=== PATIENT | male | born 2000 | race Caucasian/White ===

== ENCOUNTER 2022-07-09 11:35 | Emergency (ER) | payer BC ==
[~2022-07-09] VITALS: Ht 177.8 cm; Wt 81.6 kg
--- NOTE | 2022-07-09 12:08 | ED GI ---
General Chief Complaint: Abdominal/GI Problems Stated Complaint: VOMITTING BLOOD History of Present Illness Date Seen by Provider: Jul 09, 2022 Time Seen by Provider: 11:50 Initial Comments 21 year old male presents for vomiting daily to every 2-3 days, for the last 3-4 weeks. He was diagnosed with COVID [address] [facility]. He denies nausea or abdominal pain, no previous GI issues or surgeries. Is not taking any medications for the symptoms. Reports normal BM this morning. Hasn't eaten an ything this morning. Woke up at 1000, was brushing his teeth and "triggered something" then gagged and vomited. Noted some red blood in the emesis, reports it was not bright red or dark red. Has not noticed blood in the emesis prior to this episode. No other complaints, has not seen his PCP for the vomiting. Reports sometimes it happens after he eats, other times are random. No weight loss or change in activity/appetite. Denies stress or anxiety, no concerns with school, family or social life. Timing/Duration: Intermittent Severity/Quality: Mild Radiation: No Radiation Associated Symptoms: Denies Symptoms (STEFANI WAN) Allergies and Home Medications Allergies Coded Allergies: No Known Drug Allergies (Unverified , 07/09/22) Patient Home Medication List Home Medication List Reviewed: Yes (STEFANI WAN) Pantoprazole Sodium (Protonix) 20 Mg Tablet.dr, 20 MG PO DAILY Prescribed by: STEFANI WAN on 07/09/22 1310 Review of Systems Review of Systems Constitutional: no symptoms reported, see HPI Gastrointestinal: See HPI; Denies Abdominal Pain, Denies Constipated, Denies Diarrhea, Denies Difficulty Swallowing, Denies Nausea, Denies Poor Appetite, Denies Poor Fluid Intake, Denies Rectal Bleeding; Vomiting (STEFANI WAN) All Other Systems Reviewed Negative Unless Noted: Yes (STEFANI WAN) Past Yiflcmd-Dtsokv-Nnmrbl Hx Family Medical History Reviewed Nursing Family Hx (STEFANI WAN) Physical Exam Vital Signs Vital Signs - First Documented 07/09/22 07/09/22 11:50 13:20 Temp 36.2 Pulse 71 Resp 15 B/P (MAP) 141/89 (106) Pulse Ox 98 O2 Delivery Room Air (CINTIA COX MD) Vital Signs Capillary Refill : (STEFANI WAN) Height/Weight/BMI Height: '" Weight: lbs. oz. kg; BMI Method: General Appearance: WD/WN, no apparent distress HEENT: PERRL/EOMI, normal ENT inspection, TMs normal, pharynx normal Respiratory: chest non-tender, lungs clear, normal breath sounds Cardiovascular: normal peripheral pulses, regular rate, rhythm Gastrointestinal: normal bowel sounds, non tender, soft; No distended, No guarding, No rebound, No tenderness, No mass Neurologic/Psychiatric: no motor/sensory deficits, alert, normal mood/affect, oriented x 3 Skin: normal color, warm/dry (STEFANI WAN) Progress/Results/Core Measures Results/Orders Lab Results Laboratory Tests Test 07/09/22 12:02 07/09/22 12:20 Range/Units White Blood Count 6.5 4.3-11.0 10^3/uL Red Blood Count 5.38 4.30-5.52 10^6/uL Hemoglobin 16.7 13.3-17.7 g/dL Hematocrit 48 40-54 % Mean Corpuscular Volume 89 80-99 fL Mean Corpuscular Hemoglobin 31 25-34 pg Mean Corpuscular Hemoglobin Concent 35 32-36 g/dL Red Cell Distribution Width 11.9 10.0-14.5 % Platelet Count 254 130-400 10^3/uL Mean Platelet Volume 9.7 9.0-12.2 fL Immature Granulocyte % (Auto) 0 % Neutrophils (%) (Auto) 57 42-75 % Lymphocytes (%) (Auto) 29 12-44 % Monocytes (%) (Auto) 11 0-12 % Eosinophils (%) (Auto) 2 0-10 % Basophils (%) (Auto) 1 0-10 % Neutrophils # (Auto) 3.7 1.8-7.8 10^3/uL Lymphocytes # (Auto) 1.9 1.0-4.0 10^3/uL Monocytes # (Auto) 0.7 0.0-1.0 10^3/uL Eosinophils # (Auto) 0.1 0.0-0.3 10^3/uL Basophils # (Auto) 0.0 0.0-0.1 10^3/uL Immature Granulocyte # (Auto) 0.0 0.0-0.1 10^3/uL Sodium Level 141 135-145 MMOL/L Potassium Level 3.8 3.6-5.0 MMOL/L Chloride Level 104 98-107 MMOL/L Carbon Dioxide Level 24 21-32 MMOL/L Anion Gap 13 5-14 MMOL/L Blood Urea Nitrogen 7 7-18 MG/DL Creatinine 0.97 0.60-1.30 MG/DL Estimat Glomerular Filtration Rate 112 BUN/Creatinine Ratio 7 Glucose Level 84 70-105 MG/DL Calcium Level 9.8 8.5-10.1 MG/DL Corrected Calcium 8.5-10.1 MG/DL Total Bilirubin 0.9 0.1-1.0 MG/DL Aspartate Amino Transf (AST/SGOT) 17 5-34 U/L Alanine Aminotransferase (ALT/SGPT) 25 0-55 U/L Alkaline Phosphatase 102 40-136 U/L Total Protein 7.5 6.4-8.2 GM/DL Albumin 4.8 H 3.2-4.5 GM/DL Amylase Level 58 25-125 U/L Lipase 16 8-78 U/L Serum Alcohol < 10 <10 MG/DL Urine Color YELLOW Urine Clarity CLEAR Urine pH 6.0 5-9 Urine Specific [place] >=1.030 1.016-1.022 Urine Protein TRACE H NEGATIVE Urine Glucose (UA) NEGATIVE NEGATIVE Urine Ketones 3+ H NEGATIVE Urine Nitrite NEGATIVE NEGATIVE Urine Bilirubin 2+ H NEGATIVE Urine Urobilinogen 1.0 < = 1.0 MG/DL Urine Leukocyte Esterase NEGATIVE NEGATIVE Urine RBC (Auto) NEGATIVE NEGATIVE Urine RBC NONE /HPF Urine WBC 0-2 /HPF Urine Crystals NONE /LPF Urine Bacteria TRACE /HPF Urine Casts NONE /LPF Urine Mucus MODERATE H /LPF Urine Culture Indicated NO Urine Opiates Screen NEGATIVE NEGATIVE Urine Oxycodone Screen NEGATIVE NEGATIVE Urine Methadone Screen NEGATIVE NEGATIVE Urine Propoxyphene Screen NEGATIVE NEGATIVE Urine Barbiturates Screen NEGATIVE NEGATIVE Ur Tricyclic Antidepressants Screen NEGATIVE NEGATIVE Urine Phencyclidine Screen NEGATIVE NEGATIVE Urine Amphetamines Screen NEGATIVE NEGATIVE Urine Methamphetamines Screen NEGATIVE NEGATIVE Urine Benzodiazepines Screen NEGATIVE NEGATIVE Urine Cocaine Screen NEGATIVE NEGATIVE Urine Cannabinoids Screen NEGATIVE NEGATIVE (CINTIA COX MD) Vital Signs/I&O 07/09/22 07/09/22 11:50 13:20 Temp 36.2 36.5 Pulse 71 Resp 15 81 B/P (MAP) 141/89 (106) 134/73 Pulse Ox 98 O2 Delivery Room Air Room Air (CINTIA COX MD) Progress Progress Note : Time: 11:50 Progress Note patient seen and evaluated. Will obtain labs and monitor. Taking ice chips. No nausea or vomiting 1240 labs all normal, no complaints of abdominal pain, nausea or vomiting. Discharge instructions and return precautions reviewed. (STEFANI WAN) Departure Impression Primary Impression: Vomiting Qualified Codes: R11.11 - Vomiting without nausea Disposition: HOME, SELF-CARE Condition: Improved Departure-Patient Inst. Decision time for Depature: 12:40 (STEFANI WAN) Referrals: NO,LOCAL PHYSICIAN (PCP) Primary Care Physician JOSHUA HARDWICK MD Patient Instructions: Nausea and Vomiting, Adult (DC) Add. Discharge Instructions: [place] diet, push fluids. Follow up at [facility] Take Protonix, as prescribed. Return to the Emergency Dept for new, urgent healthcare needs. All discharge instructions reviewed with patient and/or family. Voiced understanding. Scripts Pantoprazole Sodium (Protonix) 20 Mg Tablet. 20 MG PO DAILY for 20 Days, #20 TAB 0 Refills Prov: STEFANI WAN 07/09/22 ATTENDING PHYSICIAN NOTE: I was physically present as attending physician in the emergency department during the care of this patient, but I was not directly involved in the decision making or delivery of care for this patient. (CINTIA COX MD) Copy Copies To 1: JOSHUA HARDWICK MD, AMY ARNP Jul 09, 2022 12:08 CINTIA COX MD Jul 12, 2022 02:01
[2022-07-09 12:18] LABS: BASOPHILS % (AUTO) 1 % (0-10); EOSINOPHILS # (AUTO) 0.1 10^3/uL (0.0-0.3); EOSINOPHILS % (AUTO) 2 % (0-10); HEMATOCRIT 48 % (40-54); HEMOGLOBIN 16.7 g/dL (13.3-17.7); LYMPHOCYTES # (AUTO) 1.9 10^3/uL (1.0-4.0); LYMPHOCYTES % (AUTO) 29 % (12-44); MEAN CORPUSCULAR HEMOGLOBIN 31 pg (25-34); MEAN CORPUSCULAR HGB CONC 35 g/dL (32-36); MEAN CORPUSCULAR VOLUME 89 fL (80-99); MEAN PLATELET VOLUME 9.7 fL (9.0-12.2); MONOCYTES # (AUTO) 0.7 10^3/uL (0.0-1.0); MONOCYTES % (AUTO) 11 % (0-12); NEUTROPHILS # (AUTO) 3.7 10^3/uL (1.8-7.8); NEUTROPHILS % (AUTO) 57 % (42-75); PLATELET COUNT 254 10^3/uL (130-400); WHITE BLOOD COUNT 6.5 10^3/uL (4.3-11.0)
[2022-07-09 12:22] LABS: ALBUMIN 4.8 GM/DL (3.2-4.5); CHLORIDE 104 MMOL/L (98-107); POTASSIUM 3.8 MMOL/L (3.6-5.0); SODIUM 141 MMOL/L (135-145)
[2022-07-09 12:23] LABS: AMYLASE 58 U/L (25-125)
[2022-07-09 12:24] LABS: CALCIUM 9.8 MG/DL (8.5-10.1)
[2022-07-09 12:25] LABS: GLUCOSE 84 MG/DL (70-105); TOTAL PROTEIN 7.5 GM/DL (6.4-8.2)
[2022-07-09 12:26] LABS: CARBON DIOXIDE 24 MMOL/L (21-32)
[2022-07-09 12:27] LABS: BILIRUBIN,TOTAL 0.9 MG/DL (0.1-1.0)
[2022-07-09 12:28] LABS: ALKALINE PHOSPHATASE 102 U/L (40-136)
[2022-07-09 12:29] LABS: CREATININE SERUM 0.97 MG/DL (0.60-1.30); GFR ESTIMATED 112
[2022-07-09 12:30] LABS: CLARITY,URINE CLEAR; COLOR,URINE YELLOW; GLUCOSE, URINE (UA) NEGATIVE (NEGATIVE); KETONES,URINE 3+ (NEGATIVE); LEUKOCYTE ESTERASE ,URINE NEGATIVE (NEGATIVE); NITRITE,URINE NEGATIVE (NEGATIVE); PROTEIN,URINE TRACE (NEGATIVE)
[2022-07-09 12:30] LABS: BUN/CREATININE RATIO 7
[2022-07-09 12:31] LABS: ALANINE AMINOTRANSFERASE 25 U/L (0-55)
[2022-07-09 12:32] LABS: LIPASE 16 U/L (8-78)
[2022-07-09 12:44] LABS: AMPHETAMINE SCREEN, URINE NEGATIVE (NEGATIVE); BARBITURATE SCREEN URINE NEGATIVE (NEGATIVE); BENZODIAZEPINES SCREEN URINE NEGATIVE (NEGATIVE); CANNABINOID SCREEN, URINE NEGATIVE (NEGATIVE); COCAINE SCREEN URINE NEGATIVE (NEGATIVE); METHADONE STAT NEGATIVE (NEGATIVE); OPIATE SCREEN URINE NEGATIVE (NEGATIVE); OXYCODONE STAT NEGATIVE (NEGATIVE); PROPOXYPHENE STAT NEGATIVE (NEGATIVE); TRICYCLIC ANTIDEPRESSANTS SCRE NEGATIVE (NEGATIVE)
[2022-07-09 12:49] LABS: BACTERIA,URINE TRACE /HPF; BILIRUBIN,URINE 2+ (NEGATIVE); WBC,URINE 0-2 /HPF
[2022-07-09] MEDS ORDERED: PANTOPRAZOLE 40 MG (PROTONIX) VIAL IV STA (12:51)
[2022-07-09] MEDS ORDERED: PANT20TA2 PO (13:10)
[2022-07-09 13:20] VITALS: BP 134/73
== END 2022-07-09 13:20 | disposition home or self-care (01) ==
LOC: ER 11:40
DX: R11.11 Vomiting without nausea (principal); Z86.16 Personal history of COVID-19
CPT/HCPCS: 80053; 80306; 81000; 82150; 83690; 85025; 99283; G0480; 36415; 80320

== ENCOUNTER 2022-08-02 06:22 | Outpatient (CLI) | payer BC ==
[~2022-08-02] VITALS: Ht 177.8 cm; Wt 75.8 kg
[~2022-08-02 06:22] MED LIST: PANT20TA2 PO
[2022-08-02] MEDS ORDERED: PANT40TA52 PO (15:21)
[2022-08-02] MEDS ORDERED: MECO10005 PO (15:22)
== END 2022-08-02 16:07 | disposition home or self-care (01) ==
LOC: PREOP 06:22
PROVIDERS: ATTEND Surgery
DX: Z01.818 Encounter for other preprocedural examination (principal)

== ENCOUNTER 2022-08-14 09:40 | Day surgery (SDC) | payer BC ==
[~2022-08-14] VITALS: Ht 177.8 cm; Wt 75.8 kg
[~2022-08-14 09:40] MED LIST changes: +MECO10005 PO; +PANT40TA52 PO
[2022-08-14] MEDS ORDERED: LACTATED RINGERS 1,000 ML IV STA (09:48)
[2022-08-14 10:00] VITALS: BP 133/76
[2022-08-14] MEDS ORDERED: HURRICAINE EXT TUBE (BENZOCAINE) XX PRN (10:00)
--- NOTE | 2022-08-14 10:28 | Progress Note-Pre Operative ---
Pre-Operative Progress Note Date of Available H&P: Aug 01, 2022 Date H&P Reviewed: Aug 14, 2022 Time H&P Reviewed: 10:27 History & Physical: H&P Reviewed, Patient Examed, No changes noted Pre-Operative Diagnosis: hematemesis RAVI MARTINEZ DO Aug 14, 2022 10:28
[2022-08-14] MEDS ORDERED: proPOfol 200 MG/20 ML (DIPRIVAN) VIAL IV ONE (11:45)
[2022-08-14] MEDS ORDERED: MIDAZOLAM 2 MG/2 ML (VERSED) VIAL ONE (11:45)
--- NOTE | 2022-08-14 12:04 | Progress Note-Post Operative ---
Post-Operative Progess Note Surgeon (s)/Business Intelligence Developer (s) Surgeon RAVI MARTINEZ DO Business Intelligence Developer: none Pre-Operative Diagnosis hematemesis Post-Operative Diagnosis Gastritis Small sliding hiatal hernia Procedure & Operative Findings Date of Procedure 08/14/22 Procedure Performed/Findings EGD with bx PROCEDURE NOTE: After informed consent was obtained, the patient was brought to the endoscopy suite, placed in bed in left lateral decubitus position. He was administered IV sedation by the BANQUET PILOT who then monitored vitals the entire time, heart rate, blood pressure and pulse ox and the scope was inserted down the mouth through the esophagus into the stomach. On the way down, noted some mild esophagitis, took a picture, pushed into the stomach, pushed past the antrum into the duodenum. Duodenum looked good. Pulled back and did a biopsy of antrum, then retroflexed the scope, saw a small sliding hiatal hernia, took a picture of this and then pulled the scope into the GE junction, and then did a biopsy of the GE junction. Pushed the scope back into the stomach, suctioned all the air out of the stomach. At this point pulled the scope up the esophagus and out the mouth. The patient tolerated the procedure, and he recovered in endoscopy suite. Anesthesia Type IV sedation by Anesthesia Estimated Blood Loss Estimated blood loss (mL): scant Specimens/Packing Specimens Removed antral bx body of stomach bx GE jxn bx RAVI MARTINEZ DO Aug 14, 2022 12:04
[2022-08-14 12:05] VITALS: BP 100/59
--- NOTE | 2022-08-14 12:05 | Endoscopy Discharge Instruct ---
Endo Procedure/Findings Findings 1.: Gastritis 2.: Hiatal Hernia Discharge Instructions - Activity: You might feel a little sleepy until tomorrow. This is due to the medicine you received to relax you. Until tomorrow, you should: NOT drive a car, operate machinery or power tools. NOT drink any alcoholic beverages. NOT make any important decisions or sign importortant papers. Do not return to work until tomorrow, unless otherwise instructed. Resume previous activities tomorrow. Diet: Start by taking liquids. If you tolerate liquids, advance to solid food. 1.: EGD in 3 years Notify Physician - If you experience excessive bleeding, unusual abdominal pain, fever, or chest pain, contact your doctor immediately. RAVI MARTINEZ DO Aug 14, 2022 12:05
[2022-08-14 12:10] VITALS: BP 100/56
[2022-08-14 12:29] VITALS: BP 103/70
--- NOTE | 2022-08-14 13:38 | Anesthesia-General Post-Op ---
MAC Patient Condition Mental Status/LOC: Same as Preop Cardiovascular: Satisfactory Nausea/Vomiting: Absent Respiratory: Satisfactory Pain: Controlled Complications: Absent Post Op Complications Complications None Follow Up Care/Instructions Patient Instructions None needed. Anesthesiology Discharge Order Discharge Order Patient was doing well after the procedure with no complaints, stable vital signs, no apparent adverse anesthesia problems. No complications reported per nursing. HALINA FELIX DO Aug 14, 2022 13:38
== END 2022-08-14 12:45 | disposition home or self-care (01) ==
LOC: ENDO 09:40
PROVIDERS: ATTEND Surgery
DX: K29.71 Gastritis, unspecified, with bleeding (principal); K20.91 Esophagitis, unspecified with bleeding; K31.9 Disease of stomach and duodenum, unspecified; K44.9 Diaphragmatic hernia without obstruction or gangrene; F17.290 Nicotine dependence, other tobacco product, uncomplicated; Z80.0 Family history of malignant neoplasm of digestive organs; F10.90 Alcohol use, unspecified, uncomplicated; Y90.0 Blood alcohol level of less than 20 mg/100 ml